=== PATIENT | female | born 1970 | race African-American/Black ===

== ENCOUNTER 2016-07-27 05:30 | Day surgery (SDC) | payer OTHER ==
[~2016-07-27] VITALS: Ht 162.6 cm; Wt 92.5 kg
[~2016-07-27 05:30] MED LIST: BUTALB-ACETAMI1 EAC2 PO; FEOSOL325 MG PO; FOLIC ACID1 MG PO; LIPITOR20 MG PO; LIPITOR40 MG PO; LO-DOSE ASPIRIN81 M1 PO; MOTRIN800 MG PO; PROTONIX40 MG PO; TENORMIN25 MG PO; TRAMADOL HCL50 MG PO; ZOLOFT100 MG PO
[2016-07-27 06:00] VITALS: BP 131/63
[2016-07-27 13:00] VITALS: BP 114/67
[2016-07-27 16:02] VITALS: BP 128/72
[2016-07-27 19:36] VITALS: BP 116/69
[2016-07-27 23:48] VITALS: BP 140/67
[2016-07-28 04:03] VITALS: BP 115/73
[2016-07-28 08:00] VITALS: BP 127/60
[2016-07-28 08:00] LABS: ANION GAP 10 MEQ/L (2-14); CHLORIDE 107 MEQ/L (99-109); GFR ESTIMATE (CALCULATED) > 59 mL/min/; GLUCOSE 93 mg/dL (70-99); POTASSIUM 3.7 MEQ/L (3.7-5.4); SAMPLE HEMOLYSIS CHECK 0; SAMPLE ICTERIC CHECK 0; SAMPLE LIPEMIA CHECK 0; SODIUM 139 MEQ/L (136-147); UREA NITROGEN (BUN) 8 mg/dL (9-23)
[2016-07-28 08:20] LABS: EOSINOPHIL (%) 0.3 % (0-5); IMMATURE GRANULOCYTE (%) 0.2 % (0.0-0.7); LYMPHOCYTE COUNT 1.5 K/uL (1.0-2.8); MONOCYTE (%) 9.9 % (3-12); MONOCYTE COUNT 0.6 K/uL (0-0.8); NEUTROPHIL (%) 66.6 % (45-76); NEUTROPHIL COUNT 4.3 K/uL (1.8-6.4)
[2016-07-28 08:27] LABS: HEMATOCRIT 35.2 % (36.0-46.0); MCH 25.3 PG (29.0-34.0); MCHC 31.5 G/DL (30.0-36.0); MCV 80.2 FL (83-99); RBC DIS.WIDTH-CV 17.7 % (11.8-14.6); RED BLOOD COUNT 4.39 M/uL (3.80-5.20)
[2016-07-28 09:26] LABS: WHITE BLOOD COUNT 6.5 K/uL (4.1-10.2)
[2016-07-28 10:13] LABS: PLAT.SUFFICIENCY ADEQUATE; USER ID MCB
[2016-07-28 10:14] LABS: PLATELET COUNT 151 K/uL (156-360)
== END 2016-07-28 11:50 | disposition home or self-care (01) ==
LOC: SDC 05:30 → 2SOUTH 10:40 → 2EASTP 10:40 → SDC 12:40 → 2EASTP 13:00 → SDC 13:32 → 2EASTP 07-28 11:50
PROVIDERS: Obstetrics & Gynecology Gynecology
PROC: 0UT94ZZ Resection of Uterus, Percutaneous Endoscopic Approach (ICD-10-PCS; principal; 2016-07-27)
PROC: 0DTJ4ZZ Resection of Appendix, Percutaneous Endoscopic Approach (ICD-10-PCS; principal; 2016-07-27)
PROC: 0UT74ZZ Resection of Bilateral Fallopian Tubes, Percutaneous Endoscopic Approach (ICD-10-PCS; principal; 2016-07-27)
DX: D25.9 Leiomyoma of uterus, unspecified (principal); N92.0 Excessive and frequent menstruation with regular cycle; N94.6 Dysmenorrhea, unspecified; I10 Essential (primary) hypertension; K21.9 Gastro-esophageal reflux disease without esophagitis; Z79.82 Long term (current) use of aspirin
CPT/HCPCS: 80048; 85025; 87086; 88304; 88307; G0378; J0131; J0690; J1100; J1170; J1644; J1885; J1940; J2175; J2250; J2405; J2710; J3010; J7120

== ENCOUNTER → 2017-08-04 | Outpatient (CLI) | payer OTHER | END | disposition home or self-care (01) | DX: R13.12 Dysphagia, oropharyngeal phase (principal); K21.9 Gastro-esophageal reflux disease without esophagitis; I69.398 Other sequelae of cerebral infarction | CPT/HCPCS: 92611 GN; G8996 GN; G8997 GN; G8998 GN ==